=== PATIENT | female | born 1990 | race Caucasian/White ===

== ENCOUNTER 2017-04-04 21:06 | Emergency (ER) | payer OTHER ==
[2017-04-04] MEDS ORDERED: NORMAL SALINE 1,000 ML IV ONE ×2 (21:10→22:43)
--- NOTE | 2017-04-04 21:20 | ERNOTE ---
Medical Problem HPI - Narrative Date of Service: 04/04/17 - General Chief Complaint: Drug Overdose Source: patient, EMS - Immun/Allergies/Home Medications Immunizations: IMMUNIZATION HX Immunizations Up to Date Yes History of Influenza Vaccine No Hx Pneumococcal Vaccination No Allergies/Adverse Reactions: Allergies latex Allergy (Mild, Verified 04/04/17 21:14) Hives Home Medications: HOME MEDICATIONS ALPRAZolam [Xanax] 1 mg PO QID PRN 03/01/17 [Last Taken Unknown] Lisdexamfetamine Dimesylate [Vyvanse] 60 mg PO DAILY 03/01/17 [Last Taken Unknown] Gabapentin 300 mg PO TID 04/04/17 [Last Taken Unknown] Phenazopyridine HCl 100 mg PO TID PRN 04/04/17 [Last Taken Unknown] - History of Present History Narrative: Mother in law called EMS due to the concern that the patient may overdosed on medications. Reportedly the patient has been sleeping for most of the day, has been difficult to awaken, with periods of apnea (?). The patient admits to taking 3 Xanax tablets this morning and EMS reports that she also took additional tablet this evening. The mother in law took her child since the mother was not able to care for her today. Timing: constant Severity: moderate Modifying Factors - (Improves): Present: other - none Modifying Factors - (Worsens): Present: other - none Review of Systems - Review of Systems Constitutional: Present: no symptoms reported EYE: Present: no symptoms reported ENT: Present: no symptoms reported Respiratory: Present: no symptoms reported Cardiology: Present: no symptoms reported Gastrointestinal/Abdominal: Present: no symptoms reported Genitourinary: Present: no symptoms reported Musculoskeletal: Present: no symptoms reported Skin: Present: no symptoms reported Neurological: Present: no symptoms reported Endocrine: Present: no symptoms reported Hematologic/Lymphatic: Present: no symptoms reported - Patient's Past Medical History Patient History - Medical: ADHD, Anxiety, Bipolar Patient History - Cardiac/Respiratory: No pertinent hx Patient History - Cancer: No Hx of Cancer Patient History - Surgical Procedures: Appendectomy, Tubal Ligation, Other Patient History - Other: None LMP (Calendar): 01/10/16 - Social History Living Situations: alone Abuse History: No History of abuse Psych History: Hx of Anxiety, Hx of Bipolar Disorder, Current tx/ever been on anti-depressants or anti-anxiety meds Alcohol Use: none Drug Use: none - Immunizations Immunizations Up to Date: Yes Hx Pneumococcal Vaccination: No History of Influenza Vaccine: No Physical Exam - Physical Exam General Appearance: Present: lethargic, other - arousable, but then quickly drifts off to sleep again. Eye Exam: PERRL: bilateral, Sclera injection: bilateral Ears, Nose, Throat: Present: normal ENT inspection Neck: Present: normal inspection Respiratory: Present: no respiratory distress Cardiovascular/Chest: Present: regular rate, rhythm Gastrointestinal/Abdominal: Present: nondistended, soft Back Exam: Present: normal inspection Extremity Exam: Present: normal inspection Neurological Exam: Present: other - speech is slurred, falls asleep in the middle of sentences. Skin Exam: Present: normal color ED Progress - Results and Orders Patient's Lab Results:: I have reviewed the patient's lab results. - Vital Signs Patient's Vital Signs:: I have reviewed the patient's vital signs. - EKG EKG: NSR EKG read: Interp. by me EKG Comments: rate 99, normal axis, sinus - Progress/Reassessment Progress:: Improved Progress Note-Subjective: 04/05/17 00:40 speech is a bit clearer. Attempted to walk in the ED but had an unsteady gait. 04/05/17 03:45 Has a steady gait and more alert at this time. Now has called to have some one to take her home. Departure - Departure Clinical Impression: Polysubstance abuse Disposition: Home self-care Condition: Fair Instructions: Finding Treatment for Addiction Print Language: [place]itan[place]
[2017-04-04 21:24] LABS: Hematocrit 40.3 % (37.0-47.0); Hemoglobin 13.8 gm/dL (12.5-16.0); Mean Cell Volume 91.2 fl (78-100); Mean Corpuscular Hemoglobin 31.2 pg (27-31); Mean Corpuscular Hgb Conc 34.2 g/dl (32-36); Mean Platelet Volume 9.1 fl (6.0-9.5); Neutrophil # 9.5 K/mm3 (1.3-6.0); Neutrophil % 73.8 % (42-75.0); Platelet Count 217 K/mm3 (150-450); Red Blood Count 4.42 M/mm3 (4.2-5.4); Red Cell Distribution Width 13.9 % (11.5-14.0); White Blood Count 12.9 K/mm3 (4.0-10.5)
[2017-04-04 21:39] LABS: ALT 17 U/L (19-67); AST 24 U/L (0-48); Albumin * 4.2 gm/dl (3.4-5.0); Alkaline Phosphatase * 49 U/L (50-170); Anion Gap 12.7 mmol/L (6.8-13.8); Blood Urea Nitrogen 12 mg/dL (3-23); Ca. Corrected For Albumin 8.2 mg/dL (8.4-10.2); Calcium * 8.7 mg/dL (7.9-10.9); Carbon Dioxide 29.1 mmol/L (24-32.6); Chloride 100 mmol/L (97-106); Glucose * 118 mg/dL (70-110); Potassium 3.8 mmol/L (3.4-4.6); Salicylate Less than 2.8 mg/dL (2.8-20.0); Sodium 138 mmol/L (132-142); Total Protein 8.2 gm/dL (6.2-8.2)
[2017-04-04 21:41] LABS: Cocaine Ur Negative (NEGATIVE); Urine Barbiturate Negative (NEGATIVE); Urine Opiates Negative (NEGATIVE); Urine PCP Negative (NEGATIVE)
[2017-04-04 21:44] LABS: Urine Benzodiazepines Positive (NEGATIVE); Urine THC Positive (NEGATIVE)
[2017-04-04 22:09] LABS: Urine Bilirubin Negative (NEGATIVE); Urine Blood Negative /ul (NEGATIVE); Urine Ketone Negative (NEGATIVE); Urine Nitrite Negative (NEGATIVE); Urine Protein Negative (NEGATIVE); Urine Urobilinogen Normal (NORMAL)
[2017-04-04 22:10] LABS: Urine Appearance Clear; Urine Bacteria TRACE; Urine Color Yellow; Urine RBC None Seen /hpf (0-5); Urine WBC 0-5 /hpf (0-5)
[2017-04-05 06:06] VITALS: BP 84/48
== END 2017-04-05 06:04 | disposition home or self-care (01) ==
LOC: ER 21:06
DX: F19.129 Other psychoactive substance abuse with intoxication, unspecified (principal); F41.9 Anxiety disorder, unspecified; F90.9 Attention-deficit hyperactivity disorder, unspecified type; F31.70 Bipolar disorder, currently in remission, most recent episode unspecified
CPT/HCPCS: 36415; 80053; 80307; 81001; 85025; 93005; 99284; G0480; G0481